=== PATIENT | male | born 1945 | race Hispanic/Latino ===

== ENCOUNTER 2017-12-11 12:42 | Inpatient (IN) | payer MEDICARE, OTHER ==
[~2017-12-11] VITALS: Ht 175.3 cm; Wt 79.8 kg
[2017-12-11 13:00] VITALS: BP 148/67
[2017-12-11] MEDS ORDERED: ATOR40TA69 PO (13:50)
[2017-12-11] MEDS ORDERED: CARV6.25 PO (13:50)
[2017-12-11] MEDS ORDERED: OMEP20CA10 PO (13:50)
[2017-12-11] MEDS ORDERED: EZET10 PO (13:50)
[2017-12-11] MEDS ORDERED: FURO20TA6 PO (13:50)
[2017-12-11] MEDS ORDERED: DILT240C3 PO (13:50)
[2017-12-11] MEDS ORDERED: ONDANSETRON HCL 4 MG/2 ML VIAL IVP PRN (14:45)
[2017-12-11 15:10] LABS: HEMATOCRIT 39.7 % (42-54); MEAN CORPUSCULAR HEMOGLOBIN 31.1 pg (27.0-33.0); MEAN CORPUSCULAR HGB CONC 33.5 g/dL (32.0-36.0); MEAN CORPUSCULAR VOLUME 92.9 fL (79-99); PLATELET COUNT (AUTO) 150 K/uL (130-400); RED BLOOD CELL COUNT(AUTO) 4.27 MIL/uL (4.50-6.20); RED CELL DISTRIBUTION WIDTH 15.5 % (11.0-15.5); WHITE BLOOD COUNT (AUTO) 7.7 K/uL (4.8-10.8)
[2017-12-11 15:48] LABS: ALANINE AMINOTRANSFERASE 34 U/L (12-78); ALBUMIN 3.2 g/dL (3.5-5.0); ASPARTATE AMINOTRANSFERASE 28 U/L (10-37); BILIRUBIN,TOTAL 0.6 mg/dL (0.2-1.0); CARBON DIOXIDE 26 mmol/L (21-32); CHLORIDE 106 mmol/L (101-111); CREATINE KINASE MB 1.2 ng/mL (0.5-3.6); CREATINE KINASE, TOTAL 64 U/L (21-232); CREATININE 1.6 mg/dL (0.5-1.5); GLOMERULAR FILTR. RATE CALC 45 mL/min (>60); GLUCOSE,RANDOM 92 mg/dL (70-105); MYOGLOBIN 77 ng/mL (10-92); POTASSIUM 3.9 mmol/L (3.5-5.1); SODIUM SERUM 140 mmol/L (136-145); T4 (THYROXINE) 5.7 mcg/dL (4.7-13.3); THYROID STIMULATING HORMONE 4.69 uIU/mL (0.36-3.74); TOTAL PROTEIN, SERUM 7.9 g/dL (6.0-8.3); TROPONIN I < 0.04 ng/mL (0.00-0.06); UREA NITROGEN, BLOOD 20 mg/dL (7-18)
[2017-12-11 16:00] VITALS: BP 140/59
[2017-12-11] MEDS: CARVEDILOL 6.25 MG TABLET PO SCH (19:19)
[2017-12-11] MEDS: FUROSEMIDE 20 MG TABLET PO SCH (19:19)
[2017-12-11 19:51] VITALS: BP 135/88
[2017-12-11 20:41] LABS: CREATINE KINASE MB 0.9 ng/mL (0.5-3.6); CREATINE KINASE, TOTAL 57 U/L (21-232); MYOGLOBIN 81 ng/mL (10-92); TROPONIN I < 0.04 ng/mL (0.00-0.06)
[2017-12-12] VITALS (14 sets, daily range): BP systolic 115–159; BP diastolic 55–77
[2017-12-12 03:04] LABS: CREATINE KINASE, TOTAL 48 U/L (21-232); MYOGLOBIN 82 ng/mL (10-92); TROPONIN I < 0.04 ng/mL (0.00-0.06)
[2017-12-12] MEDS: FUROSEMIDE 20 MG TABLET PO SCH ×2 (08:36→21:00)
[2017-12-12] MEDS: CARVEDILOL 6.25 MG TABLET PO SCH ×2 (08:36→22:16)
[2017-12-12] MEDS: EZETIMIBE 10 MG TAB PO SCH (08:37)
[2017-12-12] MEDS: PANTOPRAZOLE SODIUM 40 MG TABLET.DR PO SCH (08:37)
[2017-12-12] MEDS ORDERED: IOPAMIDOL-370 75 ML VIAL IV ONE ×3 (11:48→13:22)
[2017-12-12] MEDS ORDERED: NITROGLYCERIN 5 MG/ML 10 ML VIAL IV ONE (11:48)
[2017-12-12] MEDS ORDERED: LIDOCAINE HCL 2% 20ML ONE (11:48)
[2017-12-12] MEDS ORDERED: BIVALIRUDIN 250 MG/VIAL IV ONE (11:48)
[2017-12-12] MEDS ORDERED: ISOVUE-370 50ML VIAL IV ONE (11:48)
[2017-12-12] MEDS ORDERED: HEPARIN SODIUM 1000UNIT/ML 10ML VIAL ONE (11:48)
[2017-12-12 11:51] LABS: INR 1.05 (0.85-1.15); PARTIAL THROMBOPLASTIN TIME 26.6 SEC (26.3-35.5)
[2017-12-12] MEDS ORDERED: NITROGLYCERIN 4.1 GM SPRAY TL ONE (13:31)
[2017-12-12] MEDS ORDERED: SODIUM CHLORIDE 0.9% 1000ML 1,000 ML IV SCH (13:44)
[2017-12-12] MEDS ORDERED: FUROSEMIDE 10 MG/ML 2ML VIAL IV SCH (13:45)
[2017-12-12] MEDS: ASPIRIN 81 MG EC TAB PO SCH (14:30)
[2017-12-12] MEDS: ATORVASTATIN CALCIUM 40 MG TABLET PO SCH (14:30)
[2017-12-13 04:00] VITALS: BP 147/67
[2017-12-13 07:29] VITALS: BP 118/80
[2017-12-13] MEDS: CARVEDILOL 6.25 MG TABLET PO SCH ×2 (08:49→21:20)
[2017-12-13] MEDS: PANTOPRAZOLE SODIUM 40 MG TABLET.DR PO SCH (08:49)
[2017-12-13] MEDS: FUROSEMIDE 20 MG TABLET PO SCH ×2 (08:49→21:20)
[2017-12-13] MEDS: EZETIMIBE 10 MG TAB PO SCH (08:52)
[2017-12-13] MEDS: ATORVASTATIN CALCIUM 40 MG TABLET PO SCH (08:52)
[2017-12-13] MEDS: ASPIRIN 81 MG EC TAB PO SCH (08:52)
[2017-12-13 11:14] VITALS: BP 128/68
[2017-12-13] MEDS: ACETAMINOPHEN EXTENDED RELEASE 650 MG TABLET PO PRN ×2 (12:45→21:23)
[2017-12-13 16:28] VITALS: BP 134/61
[2017-12-13 19:31] VITALS: BP 148/65
[2017-12-13 23:44] VITALS: BP 140/68
[2017-12-14 03:46] VITALS: BP 132/61
[2017-12-14 07:37] VITALS: BP 122/54
[2017-12-14] MEDS: PANTOPRAZOLE SODIUM 40 MG TABLET.DR PO SCH (07:44)
[2017-12-14] MEDS: FUROSEMIDE 20 MG TABLET PO SCH ×2 (07:44→22:56)
[2017-12-14] MEDS: ASPIRIN 81 MG EC TAB PO SCH (07:44)
[2017-12-14] MEDS: ATORVASTATIN CALCIUM 40 MG TABLET PO SCH (07:45)
[2017-12-14] MEDS: CARVEDILOL 6.25 MG TABLET PO SCH ×2 (07:45→22:57)
[2017-12-14] MEDS: EZETIMIBE 10 MG TAB PO SCH (07:45)
[2017-12-14 10:27] LABS: BASOPHILS % (AUTO) 0.7 % (0.0-5.0); HEMATOCRIT 37.7 % (42-54); LYMPHOCYTES % (AUTO) 12.9 % (21.0-51.0); MEAN CORPUSCULAR HEMOGLOBIN 31.4 pg (27.0-33.0); MEAN CORPUSCULAR VOLUME 92.5 fL (79-99); MONOCYTES % (AUTO) 5.5 % (3.0-13.0); NEUTROPHILS % (AUTO) 77.9 % (40.0-77.0); PLATELET COUNT (AUTO) 129 K/uL (130-400); RED BLOOD CELL COUNT(AUTO) 4.08 MIL/uL (4.50-6.20); RED CELL DISTRIBUTION WIDTH 15.1 % (11.0-15.5); WHITE BLOOD COUNT (AUTO) 9.8 K/uL (4.8-10.8)
[2017-12-14 10:34] LABS: CREATININE 1.9 mg/dL (0.5-1.5); POTASSIUM 3.4 mmol/L (3.5-5.1)
[2017-12-14 11:26] VITALS: BP 145/81
[2017-12-14] MEDS ORDERED: LIDOCAINE HCL-MPF 1% 2ML VIAL IVP PRN (12:30)
[2017-12-14] MEDS ORDERED: POTASSIUM CHLORIDE 20MEQ/100ML 100 ML IV PRN (12:30)
[2017-12-14] MEDS ORDERED: POTASSIUM CHLORIDE 10% ELIXIR 20 MEQ/15 ML UDCUP PO PRN (12:30)
[2017-12-14] MEDS ORDERED: POTASSIUM CHLORIDE 20 MEQ ERTAB PO PRN (12:30)
[2017-12-14 16:34] VITALS: BP 135/64
[2017-12-14 19:53] VITALS: BP 124/41
[2017-12-14] MEDS ORDERED: POTASSIUM CHLORIDE 10 MEQ/TAB.SA PO ONE ×2 (22:49)
[2017-12-14 23:44] VITALS: BP 143/62
[2017-12-15 04:07] LABS: INR 1.02 (0.85-1.15); PARTIAL THROMBOPLASTIN TIME 26.6 SEC (26.3-35.5); PROTHROMBIN TIME 10.7 SEC (9.6-11.6)
[2017-12-15 04:19] VITALS: BP 121/64
[2017-12-15 07:00] VITALS: BP 124/68
[2017-12-15] MEDS: ATORVASTATIN CALCIUM 40 MG TABLET PO SCH (10:56)
[2017-12-15] MEDS: EZETIMIBE 10 MG TAB PO SCH (10:56)
[2017-12-15] MEDS: FUROSEMIDE 20 MG TABLET PO SCH (10:57)
[2017-12-15] MEDS: CARVEDILOL 6.25 MG TABLET PO SCH (10:57)
[2017-12-15] MEDS: ASPIRIN 81 MG EC TAB PO SCH (10:57)
[2017-12-15] MEDS: PANTOPRAZOLE SODIUM 40 MG TABLET.DR PO SCH (10:58)
[2017-12-15 11:00] VITALS: BP 149/66
== END 2017-12-15 17:00 | disposition home or self-care (01) | DRG 286 ==
LOC: EDH 12:42 → EDHIP 13:19 → 2DH 13:22 → 2BH 12-15 14:13
PROVIDERS: ADMIT Internal Medicine Cardiovascular Disease; ATTEND Internal Medicine Cardiovascular Disease
PROC: 4A023N7 Measurement of Cardiac Sampling and Pressure, Left Heart, Percutaneous Approach (ICD-10-PCS; principal; 2017-12-12)
PROC: B2111ZZ Fluoroscopy of Multiple Coronary Arteries using Low Osmolar Contrast (ICD-10-PCS; 2017-12-12)
PROC: B2151ZZ Fluoroscopy of Left Heart using Low Osmolar Contrast (ICD-10-PCS; 2017-12-12)
PROC: B2181ZZ Fluoroscopy of Left Internal Mammary Bypass Graft using Low Osmolar Contrast (ICD-10-PCS; 2017-12-12)
PROC: B2131ZZ Fluoroscopy of Multiple Coronary Artery Bypass Grafts using Low Osmolar Contrast (ICD-10-PCS; 2017-12-12)
PROC: 4B02XTZ Measurement of Cardiac Defibrillator, External Approach (ICD-10-PCS; 2017-12-12)
DX: T82.857A Stenosis of other cardiac prosthetic devices, implants and grafts, initial encounter (principal); I49.01 Ventricular fibrillation; I50.43 Acute on chronic combined systolic (congestive) and diastolic (congestive) heart failure; I25.810 Atherosclerosis of coronary artery bypass graft(s) without angina pectoris; I47.2 Ventricular tachycardia; Y83.2 Surgical operation with anastomosis, bypass or graft as the cause of abnormal reaction of the patient, or of later complication, without mention of misadventure at the time of the procedure; E78.5 Hyperlipidemia, unspecified; F17.200 Nicotine dependence, unspecified, uncomplicated; I12.9 Hypertensive chronic kidney disease with stage 1 through stage 4 chronic kidney disease, or unspecified chronic kidney disease; I25.5 Ischemic cardiomyopathy; E78.00 Pure hypercholesterolemia, unspecified; I45.10 Unspecified right bundle-branch block; I25.82 Chronic total occlusion of coronary artery; N18.9 Chronic kidney disease, unspecified; Z79.82 Long term (current) use of aspirin; Z79.899 Other long term (current) drug therapy; Z82.49 Family history of ischemic heart disease and other diseases of the circulatory system; Z95.810 Presence of automatic (implantable) cardiac defibrillator; I25.2 Old myocardial infarction; Y92.89 Other specified places as the place of occurrence of the external cause; Z95.1 Presence of aortocoronary bypass graft
CPT/HCPCS: 36415; 71045; 80048; 80053; 82550; 82553; 83735; 83874; 83880; 84436; 84443; 84484; 85025; 85027; 85610; 85730; 93005; 93306; 93459; C1760; C1769; C1894; J0583; J1644; J1940; J3490; Q9967